=== PATIENT | male | born 1980 | race Caucasian/White ===

== ENCOUNTER 2019-05-04 11:09 | Emergency (ER) | payer MEDICAID ==
[~2019-05-04] VITALS: Ht 172.7 cm; Wt 90.7 kg
[~2019-05-04 11:09] MED LIST: CARI-277 PO; CEPH250C PO; DICL100T11 PO; GABA300C PO; NOR10T PO
[2019-05-04 11:24] VITALS: BP 137/87
== END 2019-05-04 12:05 | disposition home or self-care (01) ==
LOC: ER 11:09
DX: R23.8 Other skin changes (principal); F17.210 Nicotine dependence, cigarettes, uncomplicated; Z90.49 Acquired absence of other specified parts of digestive tract; Z79.899 Other long term (current) drug therapy

== ENCOUNTER 2019-08-03 17:30 | Emergency (ER) | payer MEDICAID ==
[~2019-08-03] VITALS: Ht 172.7 cm; Wt 79.4 kg
[2019-08-03 17:50] VITALS: BP 152/87
[2019-08-03] MEDS ORDERED: BACITRACIN TOP OINT 1 UD PKG TOP ONE (20:03)
[2019-08-03] MEDS ORDERED: ceFAZolin IM 1GM/2.5ML STERILE WATER IM ONE (20:15)
[2019-08-03] MEDS ORDERED: HYDROcodone-ACET 7.5/325MG TAB PO ONE (20:15)
[2019-08-03] MEDS ORDERED: KETOROLAC TROMETH 15 mg/ml 1ML VL IV ONE (20:15)
[2019-08-03] MEDS ORDERED: ceFAZolin 1GM VL ONE (20:26)
[2019-08-03] MEDS ORDERED: TETANUS-DIPTH-ACEL PERTUSSIS 0.5ML SYRG IM ONE (20:30)
== END 2019-08-03 21:12 | disposition home or self-care (01) ==
LOC: ER 17:30
DX: S51.852A Open bite of left forearm, initial encounter (principal); F17.210 Nicotine dependence, cigarettes, uncomplicated; Z90.49 Acquired absence of other specified parts of digestive tract; Z88.2 Allergy status to sulfonamides; Z79.2 Long term (current) use of antibiotics; Z79.899 Other long term (current) drug therapy; W54.0XXA Bitten by dog, initial encounter; Y93.89 Activity, other specified; Y92.89 Other specified places as the place of occurrence of the external cause; Y99.8 Other external cause status
CPT/HCPCS: 73090; 90715; J0690; J1885; 90471; 96372

== ENCOUNTER 2020-10-16 10:53 | Inpatient (IN) | payer MEDICAID ==
[~2020-10-16] VITALS: Ht 172.7 cm; Wt 94.1 kg
[~2020-10-16 10:53] MED LIST changes: +CEPH-322 PO; -CEPH250C PO
[2020-10-16] MEDS ORDERED: CLINDAMYCIN 600MG IV 50 ML IV ONE (11:00)
[2020-10-16] MEDS ORDERED: SODIUM CHLORIDE 0.9% 1,000 ML IV ONE (11:00)
[2020-10-16] MEDS ORDERED: ONDANSETRON HCL 4 MG/2 ML VIAL IV ONE (11:30)
[2020-10-16] MEDS ORDERED: MORPHINE SULFATE 4 MG/ML SYR/VIAL IV ONE (11:30)
[2020-10-16 11:40] LABS: Albumin 3.7 g/dL (3.4-5.0); Calcium 8.9 mg/dL (8.5-10.1); Potassium 3.3 mmol/L (3.5-5.1)
[2020-10-16 11:43] LABS: BUN/Creatinine Ratio 16.5; Bilirubin, Total 0.8 mg/dL (0.2-1.0); Total Protein 8.5 g/dL (6.4-8.2)
[2020-10-16 11:53] LABS: Basophils # (auto) 0 10 ^3/uL (0-0.2); Basophils % (auto) 0.5 % (0.0-2.0); Eosinophils # (auto) 0 10 ^3/uL (0-0.8); Eosinophils % (auto) 0.5 % (0.0-7.0); Hemoglobin 14.9 g/dL (13.5-17.5); Lymphocytes # (auto) 1.7 10 ^3/uL (0.4-5.4); Lymphocytes % (auto) 23.7 % (10.0-50.0); Mean Corpuscular Hemoglobin 32.7 pg (28.0-32.0); Mean Corpuscular Hgb Conc. 34.5 g/dL (32.0-36.0); Mean Corpuscular Volume 94.7 fL (80.0-100.0); Monocytes # (auto) 0.9 10 ^3/uL (0-1.3); Monocytes % (auto) 12.1 % (0.0-12.0); Neutrophils # (auto) 4.6 10 ^3/uL (1.6-8.6); Neutrophils % (auto) 63.2 % (37.0-80.0); Nucleated Red Blood Cells % 0.2 %; Platelet Count (auto) 290 10^3/uL (140-450); Red Blood Cells 4.54 10^6/uL (4.5-5.90); Red Cell Distribution Width 12.5 % (11.8-14.3); White Blood Cell 7.3 10^3/uL (4.4-10.8)
[2020-10-16] MEDS: KETOROLAC TROMETH 30 MG/ML 1ML VIAL IV ONE ×2 (13:03→14:01)
[2020-10-16 13:28] LABS: Amphetamine Screen, Urine POSITIVE (NEGATIVE); Barbiturate Scree,Urine NEGATIVE (NEGATIVE); Benzodiazephine Screen, Urine NEGATIVE (NEGATIVE); Cannabinoid Screen, Urine NEGATIVE (NEGATIVE); Cocaine Screen, Urine NEGATIVE (NEGATIVE); Opiate Scree,Urine NEGATIVE (NEGATIVE); Phencyclidine Screen, Urine NEGATIVE (NEGATIVE)
[2020-10-16] MEDS ORDERED: DOCUSATE CALCIUM 240 MG CAP PO PRN (15:00)
[2020-10-16] MEDS ORDERED: ONDANSETRON HCL 4 MG/2 ML VIAL IV PRN (15:00)
[2020-10-16] MEDS ORDERED: LORazepam 0.5 MG TAB PO PRN (15:00)
[2020-10-16] MEDS ORDERED: MORPHINE SULF INJ 2 MG/ML SYRINGE 1ML IV PRN (15:00)
[2020-10-16] MEDS ORDERED: NITROGLYCERIN 0.4 MG SL TAB SL PRN (15:00)
[2020-10-16] MEDS ORDERED: ACETAMINOPHEN 500 MG TAB PO PRN (15:00)
[2020-10-16] MEDS ORDERED: LABETALOL HCL 5 MG/ML 4ML SYRINGE IV PRN (15:00)
[2020-10-16] MEDS ORDERED: POTASSIUM CHL 20 Meq TABLET PO ONE (15:00)
[2020-10-16] MEDS: MORPHINE SULFATE 4 MG/ML SYR/VIAL IV PRN ×2 (15:30→21:25)
[2020-10-16] MEDS: PIPERACILLIN-TAZOB 3.375GM 100 ML IV SCH (18:05)
[2020-10-16 22:00] VITALS: BP 128/75
[2020-10-17] MEDS: PIPERACILLIN-TAZOB 3.375GM 100 ML IV SCH ×4 (00:27→18:23)
[2020-10-17] MEDS ORDERED: CLIN300C8 PO (04:43)
[2020-10-17] MEDS ORDERED: IBUP800T27 PO (04:43)
[2020-10-17 05:00] VITALS: BP 97/60
[2020-10-17] MEDS: MORPHINE SULFATE 4 MG/ML SYR/VIAL IV PRN ×3 (05:39→19:01)
[2020-10-17 07:25] LABS: Basophils # (auto) 0 10 ^3/uL (0-0.2); Eosinophils # (auto) 0.1 10 ^3/uL (0-0.8); Eosinophils % (auto) 1.9 % (0.0-7.0); Hematocrit 40.4 % (41.0-53.0); Hemoglobin 13.9 g/dL (13.5-17.5); Lymphocytes # (auto) 1.2 10 ^3/uL (0.4-5.4); Lymphocytes % (auto) 25.5 % (10.0-50.0); Mean Corpuscular Hemoglobin 32.7 pg (28.0-32.0); Mean Corpuscular Hgb Conc. 34.5 g/dL (32.0-36.0); Mean Corpuscular Volume 94.7 fL (80.0-100.0); Monocytes # (auto) 0.6 10 ^3/uL (0-1.3); Monocytes % (auto) 11.8 % (0.0-12.0); Neutrophils # (auto) 2.8 10 ^3/uL (1.6-8.6); Neutrophils % (auto) 59.8 % (37.0-80.0); Nucleated Red Blood Cells % 0.1 %; Platelet Count (auto) 268 10^3/uL (140-450); Red Blood Cells 4.26 10^6/uL (4.5-5.90); Red Cell Distribution Width 12.5 % (11.8-14.3); White Blood Cell 4.7 10^3/uL (4.4-10.8)
[2020-10-17 07:38] LABS: Potassium 3.6 mmol/L (3.5-5.1)
[2020-10-17 07:45] LABS: Albumin 2.8 g/dL (3.4-5.0); BUN/Creatinine Ratio 13.6; Bilirubin, Total 0.8 mg/dL (0.2-1.0); Calcium 8.2 mg/dL (8.5-10.1); Total Protein 6.7 g/dL (6.4-8.2)
[2020-10-17 07:48] LABS: INR 0.98 (0.9-1.15)
[2020-10-17 08:00] VITALS: BP 106/62
[2020-10-17] MEDS: ENOXAPARIN SOD 40 MG/0.4 ML SYRINGE SC SCH (10:31)
[2020-10-17] MEDS: PANTOPRAZOLE 40 MG TAB PO SCH (10:31)
[2020-10-17 13:00] VITALS: BP 105/59
[2020-10-17 17:00] VITALS: BP 104/56
[2020-10-17 22:00] VITALS: BP 106/63
[2020-10-18] MEDS: PIPERACILLIN-TAZOB 3.375GM 100 ML IV SCH ×5 (00:04→23:44)
[2020-10-18] MEDS: MORPHINE SULFATE 4 MG/ML SYR/VIAL IV PRN ×5 (00:18→20:02)
[2020-10-18 05:00] VITALS: BP 92/55
[2020-10-18 06:16] LABS: Potassium 3.9 mmol/L (3.5-5.1)
[2020-10-18 06:28] LABS: Bilirubin, Direct 0.2 mg/dL (0-0.2); Bilirubin, Total 0.5 mg/dL (0.2-1.0); Magnesium 2.6 mg/dL (1.6-2.6); Total Protein 7.1 g/dL (6.4-8.2)
[2020-10-18 08:00] VITALS: BP 92/57
[2020-10-18 09:31] VITALS: BP 92/57
[2020-10-18] MEDS: PANTOPRAZOLE 40 MG TAB PO SCH (09:37)
[2020-10-18] MEDS: ENOXAPARIN SOD 40 MG/0.4 ML SYRINGE SC SCH (09:38)
[2020-10-18 13:07] VITALS: BP 106/58
[2020-10-18 16:51] VITALS: BP 104/64
[2020-10-18 22:00] VITALS: BP 99/61
[2020-10-19] MEDS: MORPHINE SULFATE 4 MG/ML SYR/VIAL IV PRN (02:18)
[2020-10-19 05:00] VITALS: BP 89/48
[2020-10-19] MEDS: PIPERACILLIN-TAZOB 3.375GM 100 ML IV SCH ×3 (06:00→18:09)
[2020-10-19 06:53] LABS: Albumin 2.9 g/dL (3.4-5.0); Bilirubin, Direct 0.2 mg/dL (0-0.2)
[2020-10-19 06:56] LABS: Bilirubin, Total 0.3 mg/dL (0.2-1.0)
[2020-10-19 08:00] VITALS: BP 99/60
[2020-10-19 09:36] VITALS: BP 60/48
[2020-10-19] MEDS: PANTOPRAZOLE 40 MG TAB PO SCH (10:07)
[2020-10-19] MEDS: ENOXAPARIN SOD 40 MG/0.4 ML SYRINGE SC SCH (10:07)
[2020-10-19] MEDS: HYDROcodone-ACET 5/325MG TAB PO PRN ×2 (10:08→18:10)
[2020-10-19 12:40] VITALS: BP 91/56
[2020-10-19 17:00] VITALS: BP 113/67
[2020-10-19 22:00] VITALS: BP 100/61
[2020-10-20] MEDS: PIPERACILLIN-TAZOB 3.375GM 100 ML IV SCH ×3 (00:05→12:04)
[2020-10-20 05:00] VITALS: BP 95/62
[2020-10-20 06:08] LABS: Albumin 3.1 g/dL (3.4-5.0)
[2020-10-20 06:21] LABS: Bilirubin, Total 0.3 mg/dL (0.2-1.0); Total Protein 7.4 g/dL (6.4-8.2)
[2020-10-20 06:32] LABS: Bilirubin, Direct 0.1 mg/dL (0-0.2)
[2020-10-20 08:00] VITALS: BP 149/82
[2020-10-20 09:00] VITALS: BP 97/59
[2020-10-20] MEDS: ENOXAPARIN SOD 40 MG/0.4 ML SYRINGE SC SCH (09:28)
[2020-10-20] MEDS: HYDROcodone-ACET 5/325MG TAB PO PRN (09:28)
[2020-10-20] MEDS: PANTOPRAZOLE 40 MG TAB PO SCH (09:28)
[2020-10-20 13:00] VITALS: BP 109/54
[2020-10-20] MEDS ORDERED: SACC250C PO (13:12)
[2020-10-20] MEDS ORDERED: CLIN300C8 PO (13:12)
[2020-10-20 13:32] VITALS: BP 109/54
== END 2020-10-20 16:30 | disposition home or self-care (01) | DRG 383 ==
LOC: ER 10:53 → OVERFLOW 14:59 → WEST WING 19:15
PROVIDERS: ADMIT Family Medicine; ATTEND Internal Medicine
DX: L03.116 Cellulitis of left lower limb (principal); F20.9 Schizophrenia, unspecified; B19.20 Unspecified viral hepatitis C without hepatic coma; E87.6 Hypokalemia; E78.5 Hyperlipidemia, unspecified; F15.90 Other stimulant use, unspecified, uncomplicated; F19.10 Other psychoactive substance abuse, uncomplicated; I10 Essential (primary) hypertension; F17.210 Nicotine dependence, cigarettes, uncomplicated; Z20.822 Contact with and (suspected) exposure to COVID-19; Z82.49 Family history of ischemic heart disease and other diseases of the circulatory system; F32.9 Major depressive disorder, single episode, unspecified; Z88.8 Allergy status to other drugs, medicaments and biological substances; Z90.49 Acquired absence of other specified parts of digestive tract; Z71.6 Tobacco abuse counseling; Z71.51 Drug abuse counseling and surveillance of drug abuser
CPT/HCPCS: 36415; 80053; 80076; 80307; 83735; 84132; 84443; 85025; 85610; 85652; 86803; 87040; 87426; 93306; 93971; 96365; 96375; G0378; J1885; J2405; J2543; J3490

== ENCOUNTER 2021-06-08 02:38 | Emergency (ER) | payer MEDICAID ==
[~2021-06-08] VITALS: Ht 172.7 cm; Wt 83.9 kg
[~2021-06-08 02:38] MED LIST changes: -CARI-277 PO; -CEPH-322 PO; +CLIN300C8 PO; -DICL100T11 PO; -GABA300C PO; +IBUP800T27 PO; -NOR10T PO; +SACC250C PO
[2021-06-08 07:33] VITALS: BP 128/86
== END 2021-06-08 07:19 | disposition home or self-care (01) ==
LOC: ER 02:38
DX: S63.502A Unspecified sprain of left wrist, initial encounter (principal); S39.012A Strain of muscle, fascia and tendon of lower back, initial encounter; F17.210 Nicotine dependence, cigarettes, uncomplicated; F12.10 Cannabis abuse, uncomplicated; Z88.2 Allergy status to sulfonamides; V43.52XA Car driver injured in collision with other type car in traffic accident, initial encounter; Y93.89 Activity, other specified; Y92.410 Unspecified street and highway as the place of occurrence of the external cause; Y99.8 Other external cause status
CPT/HCPCS: 29125; 72100; 73100

== ENCOUNTER 2022-12-05 15:14 | Inpatient (IN) | payer MEDICAID ==
[~2022-12-05] VITALS: Ht 180.3 cm; Wt 73.0 kg
[~2022-12-05 15:14] MED LIST changes: +CLIN300C70 PO; -CLIN300C8 PO; +IBUP-1456 PO; -IBUP800T27 PO
[2022-12-05] MEDS ORDERED: SODIUM CHLORIDE 0.9% 1,000 ML IV ONE (15:30)
[2022-12-05] MEDS ORDERED: NALOXONE HCL 1MG/ML 2ML SYRINGE IV ONE (15:30)
[2022-12-05 15:42] LABS: Basophils # (auto) 0 10 ^3/uL (0-0.2); Basophils % (auto) 0.4 % (0.0-2.0); Eosinophils # (auto) 0 10 ^3/uL (0-0.8); Eosinophils % (auto) 0.6 % (0.0-7.0); Hematocrit 40.8 % (41.0-53.0); Hemoglobin 13.6 g/dL (13.5-17.5); Lymphocytes # (auto) 1.3 10 ^3/uL (0.4-5.4); Lymphocytes % (auto) 15.7 % (10.0-50.0); Mean Corpuscular Hemoglobin 31.8 pg (28.0-32.0); Mean Corpuscular Hgb Conc. 33.3 g/dL (32.0-36.0); Mean Corpuscular Volume 95.3 fL (80.0-100.0); Monocytes # (auto) 0.6 10 ^3/uL (0-1.3); Neutrophils # (auto) 6.3 10 ^3/uL (1.6-8.6); Neutrophils % (auto) 76.3 % (37.0-80.0); Nucleated Red Blood Cells % 0.1 %; Red Blood Cells 4.28 10^6/uL (4.5-5.90); Red Cell Distribution Width 13.7 % (11.8-14.3); White Blood Cell 8.2 10^3/uL (4.4-10.8)
[2022-12-05] MEDS ORDERED: CLINDAMYCIN HCL 150 MG CAP PO ONE (15:45)
[2022-12-05] MEDS ORDERED: cefTRIAXone 1GM/50ML D5W 50 ML IV ONE (15:45)
[2022-12-05 16:01] LABS: Albumin 3.6 g/dL (3.4-5.0); Anion Gap 5 (5-15); Blood Alcohol < 3.0 mg/dL (<10); Blood Urea Nitrogen 17 mg/dL (7-18); Calcium 8.5 mg/dL (8.5-10.1); Carbon Dioxide 28 mmol/L (21-32); Chloride 106 mmol/L (98-107); Glucose 163 mg/dL (74-106); Potassium 3.9 mmol/L (3.5-5.1); Sodium 139 mmol/L (136-145)
[2022-12-05 16:04] LABS: Alanine Aminotransferase 95 U/L (16-61); Alkaline Phosphatase 71 U/L (45-117); Aspartate Aminotransferase 46 U/L (15-37); BUN/Creatinine Ratio 20.2 (10.0-20.0); Bilirubin, Total 0.5 mg/dL (0.2-1.0); GFR African American 130 mL/min; GFR Non-African American 107 mL/min; Total Protein 7.4 g/dL (6.4-8.2)
[2022-12-05] MEDS ORDERED: ACETAMINOPHEN 325 MG TAB PO PRN (16:45)
[2022-12-05] MEDS ORDERED: DOCUSATE SOD 100 MG CAP PO PRN (16:45)
[2022-12-05] MEDS ORDERED: ONDANSETRON HCL 4 MG/2 ML VIAL IV PRN (16:45)
[2022-12-05] MEDS: ceFAZolin 1GM/50ML 50 ML IV SCH (19:35)
[2022-12-05] MEDS: SODIUM CHLOR 0.9% PF (SALINE LOCK) 10ML VIAL/SYR IV SCH (21:56)
[2022-12-06] MEDS: HYDROcodone-ACET 5/325MG TAB PO PRN ×3 (00:14→19:02)
[2022-12-06] MEDS: ceFAZolin 1GM/50ML 50 ML IV SCH ×3 (01:09→10:20)
[2022-12-06] MEDS: SODIUM CHLOR 0.9% PF (SALINE LOCK) 10ML VIAL/SYR IV SCH ×3 (06:27→22:00)
[2022-12-06] MEDS ORDERED: FLORASTOR (S. BOULARDII) 250 MG CAP PO SCH (10:00)
[2022-12-06 12:47] LABS: Hepatitis A Ab IgM Negative
[2022-12-06 12:48] LABS: Hepatitis B Core IgM Negative; Hepatitis C Antibody Positive (Negative)
[2022-12-06 13:45] LABS: Albumin 3.6 g/dL (3.4-5.0); BUN/Creatinine Ratio 15.8 (10.0-20.0); Bilirubin, Total 0.4 mg/dL (0.2-1.0); CRP High Sensitivity 0.92 mg/dL (< 0.3); Total Protein 7.7 g/dL (6.4-8.2); Uric Acid 3.5 mg/dL (3.5-7.2)
[2022-12-06] MEDS: PIPERACILLIN-TAZOB 3.375GM 100 ML IV SCH (18:13)
[2022-12-07] MEDS: PIPERACILLIN-TAZOB 3.375GM 100 ML IV SCH ×2 (00:21→06:40)
[2022-12-07] MEDS: HYDROcodone-ACET 5/325MG TAB PO PRN ×2 (01:46→06:12)
[2022-12-07 05:54] LABS: Potassium 3.7 mmol/L (3.5-5.1)
[2022-12-07 06:01] LABS: Basophils # (auto) 0 10 ^3/uL (0-0.2); Basophils % (auto) 0.4 % (0.0-2.0); Eosinophils # (auto) 0.1 10 ^3/uL (0-0.8); Eosinophils % (auto) 1.3 % (0.0-7.0); Hematocrit 38.9 % (41.0-53.0); Hemoglobin 13.2 g/dL (13.5-17.5); Lymphocytes # (auto) 2.2 10 ^3/uL (0.4-5.4); Mean Corpuscular Hemoglobin 32.4 pg (28.0-32.0); Mean Corpuscular Volume 95.5 fL (80.0-100.0); Monocytes # (auto) 0.8 10 ^3/uL (0-1.3); Monocytes % (auto) 10.3 % (0.0-12.0); Neutrophils # (auto) 4.7 10 ^3/uL (1.6-8.6); Nucleated Red Blood Cells % 0.1 %; Red Blood Cells 4.08 10^6/uL (4.5-5.90); Red Cell Distribution Width 13.7 % (11.8-14.3); White Blood Cell 7.8 10^3/uL (4.4-10.8)
[2022-12-07 06:04] LABS: BUN/Creatinine Ratio 14.1 (10.0-20.0); Bilirubin, Total 0.3 mg/dL (0.2-1.0); Calcium 8.5 mg/dL (8.5-10.1); Total Protein 6.6 g/dL (6.4-8.2)
[2022-12-07] MEDS: SODIUM CHLOR 0.9% PF (SALINE LOCK) 10ML VIAL/SYR IV SCH (06:13)
[2022-12-07 08:00] VITALS: BP 119/75
[2022-12-07] MEDS ORDERED: CLIN300C70 PO (10:03)
[2022-12-07] MEDS ORDERED: SACC250C PO (10:03)
[2022-12-07 10:15] LABS: Urine Bacteria NONE SEEN /hpf (None Seen); Urine Blood Negative /uL (Negative); Urine Specific Gravity 1.009 (1.001-1.035); Urine WBC <1 /hpf (0 - 3)
[2022-12-07 11:41] LABS: Alcohol, Urine < 3.0 mg/dL (0-10); Amphetamine Screen, Urine POSITIVE (NEGATIVE); Barbiturate Scree,Urine NEGATIVE (NEGATIVE); Benzodiazephine Screen, Urine NEGATIVE (NEGATIVE); Cannabinoid Screen, Urine NEGATIVE (NEGATIVE); Cocaine Screen, Urine NEGATIVE (NEGATIVE); Opiate Scree,Urine NEGATIVE (NEGATIVE); Phencyclidine Screen, Urine NEGATIVE (NEGATIVE)
== END 2022-12-07 11:15 | disposition home or self-care (01) | DRG 816 ==
LOC: ER 15:14 → EDBD 15:14 → TELE 16:53
PROVIDERS: ADMIT Internal Medicine; ATTEND Internal Medicine
DX: T40.1X1A Poisoning by heroin, accidental (unintentional), initial encounter (principal); G92.9 Unspecified toxic encephalopathy; L03.116 Cellulitis of left lower limb; B19.20 Unspecified viral hepatitis C without hepatic coma; F11.90 Opioid use, unspecified, uncomplicated; F17.210 Nicotine dependence, cigarettes, uncomplicated; F19.10 Other psychoactive substance abuse, uncomplicated; R74.01 Elevation of levels of liver transaminase levels; F20.9 Schizophrenia, unspecified; Z82.49 Family history of ischemic heart disease and other diseases of the circulatory system; Z88.8 Allergy status to other drugs, medicaments and biological substances; Z90.49 Acquired absence of other specified parts of digestive tract; Y92.89 Other specified places as the place of occurrence of the external cause
CPT/HCPCS: 36415; 70450; 73562; 73700; 80053; 80074; 80307; 80320; 81001; 82306; 83036; 83605; 84550; 85025; 85652; 86141; 87040; 93886; 97110; 97116; 97163; 97530; G0378; J0690; J0696; J2543